=== PATIENT | female | born 2005 | race Two or more races ===

== ENCOUNTER 2025-06-18 09:24 | Emergency (ER) | payer MEDICAID, SELFPAY ==
[2025-06-18 09:42] VITALS: BP 98/65; PULSE 64; RESP 16; TEMP 37.1; O2SAT 98; BMI 22.9
--- NOTE | 2025-06-18 10:12 | XR_ITS ---
EXAMINATION: Ankle, right 3 views. Technique: Ankle AP, oblique, lateral 3 views Date and time of exam: June 18, 2025, 10:32 a.m. INDICATIONS: Patient fell today with injury to the ankle, pain FINDINGS: No fracture or dislocation. No foreign body IMPRESSION: No fracture or dislocation
--- NOTE | 2025-06-18 10:12 | EDNOTE_ITS ---
Lower Extremity Injury RME/HPI General Chief Complaint: Ankle/Foot Injury Stated Complaint: R) ANKLE INJURY Time Seen by Provider: 06/18/25 09:29 Arrival date/time: 06/18/25 09:24 This is a 19-year-old female that comes into the emergency room with complaints of right ankle pain. Patient states that she hurt it while playing basketball. Patient initially thought it was just sprained but today she comes in wondering if there is a fracture to her ankle. Patient comes in with crutches already. Patient already has a Bill bandage over her leg. Patient has some mild swelling to lateral ankle area Related Data Home Medications ?Medication ?Instructions ?Recorded ?Confirmed No Known Home Medications 08/02/1710/14 Allergies Allergy/AdvReac Type Severity Reaction Status Date / Time No Known Allergies Allergy Verified 06/18/25 09:26 Review of Systems Review of Systems Systems Reviewed: All systems reviewed, normal except as documented Past Medical History Social History SMOKING STATUS: Never smoker Travel History EBOLA RISK: No ED Exam Narrative Physical exam: VITAL SIGNS: Reviewed. GENERAL APPEARANCE: Alert and interactive, follows commands, no acute distress HEAD AND FACE: Non-traumatic. ENT: PERRL, conjuctiva pink and clear, eyelid no trauma, Mucous membrane moist. NECK: Supple, nontender, no nuchal rigidity. CHEST: No tenderness, no crepitus, no paradoxical movement, no retractions. LUNGS: breathing even and unlabored HEART: Regular rate, cap refill less than 2 seconds ABDOMEN: Soft NEUROLOGICAL: Gross motor function intact sensory function intact, Appropriate for age. MUSCULOSKELETAL: low back nontender, full range of motion. no midline tenderness EXTREMITIES: No redness no swelling no skin breakdown on bilateral foot and leg. Distal neurovascular status intact bilateral foot SKIN: Color pink, dry, mild swelling to the lateral right ankle area no deformity noted. Mild pain with movement. Good distal pulses Course Quality Measures none Orders Category Date Time Status XR ankle comp RT min 3V Stat Exams 06/18/25 10:12 Completed XR foot comp RT min 3V Stat Exams 06/18/25 10:12 Completed Vital Signs Vital signs: Vital Signs Temperature 98.7 F 06/18/25 09:42 Pulse Rate 64 06/18/25 09:42 Respiratory Rate 16 06/18/25 09:42 Blood Pressure 98/65 06/18/25 09:42 Pulse Oximetry (%) 98 06/18/25 09:42 Oxygen Delivery Method Room Air 06/18/25 09:42 Extremity Injury, Lower MDM Narrative MDM Narrative:: ankle FINDINGS: No fracture or dislocation. No foreign body IMPRESSION: No fracture or dislocation foot: FINDINGS: No acute fracture No dislocation IMPRESSION: No acute fracture Today patient had xray.There was no acute fracture seen. Exam appeared unremarkable. I explained to patient at length that if there was continued pain to this area or worsened to come back to ED or see primary provider for more xrays or further testing such as CT scan or MRI. X rays are not perfect and sometimes serial films needed. Patient verbalized understanding. Patient states they will follow up with primary provider in 1-2 days or come back to ED if symptoms change or worsen. I spoke to patient and mom at length. Patient will need to follow-up with p castillo doctor in 1 to 2 days [place] to the emergency room symptoms change or worsen. I did explain to them that x-rays only show break's but do not show any tears and if continued pain may need a CT or MRI. Family verbalized understanding. Feel comfortable plan of care. I will take patient off work for the next few days I told her to rest, ice and elevate leg. Dragon dictation: Although this document has been carefully reviewed, there may still be some phonetic and other typographical errors. These errors are purely grammatical due to imperfections in the software program and should not be construed in any way to compromise the substance of the patient's medical care during this visit. Patient data External records reviewed:: [facility] previous records Clinical information provided by:: patient Social determinants that could affect healthcare access:: none Patient has the following chronic illnesses:: none How is presenting disease/condition affected by chronic disease/condition?: no chronic disease Evaluation data The following diagnostics were reviewed and interpreted by me:: radiology exam(s) Lab and/or radiology exams considered but not ordered:: none Interpretation Summary: see note Medications / Prescriptions Medications or Prescriptions considered but not ordered:: none Medication administrations:: see mar Consultations Consultation(s) initiated? (list below): No Diagnosis Most likely diagnosis given after review of the tests above:: see note Admission Indicated Admission indicated?: not indicated Admission Request Was there a request for admission?: No Disposition Plan Disposition Plan: Discharge Discharge Attestation Discharge Attestation: The patient and all family members were given an opportunity to ask questions and understood the discharge instructions. Discharge instructions specifically effects, indications for sooner follow up or return to the emergency department, and the expected course of current diagnosis. Patient condition: Stable Discharge Plan Plan Patient Disposition: HOME (Self Care) Patient condition on transfer: Stable Prescriptions/Referrals Prescriptions/Med Rec: No Action No Known Home Medications Referrals: No Primary/Family,Physician [Primary Care Provider] - In 1 week Problem List Clinical Impression: Ankle contusion, Acute ankle pain Patient/Caregiver Discharge Instructions Discharge Activity: activity as tolerated Education Materials: ED Soft Tissue Contusion, ED RICE Additional Instructions: Follow up with primary provider in 1-2 days. Come back to ED if symptoms change or worsen Print Language: Mozambican Stand Alone Forms: Cinthya Award Info., Work/School Release, Patient Portal Info Letter PA/NCA CERTIFIED CONCIERGE Supervising Physician PA/NCA CERTIFIED CONCIERGE Supervising Physician: maryam
--- NOTE | 2025-06-18 10:12 | XR_ITS ---
Examination: Foot, right, 3 views Technique: AP, oblique, lateral views foot, 3 views Date and time of exam: June 18, 2025, 1034 hours INDICATIONS: Patient fell today with injury to the foot, foot pain FINDINGS: No acute fracture No dislocation IMPRESSION: No acute fracture
== END 2025-06-18 12:35 | disposition home or self-care (01) ==
PROVIDERS: Emergency Provider Emergency Medicine
DX: S90.01XA Contusion of right ankle, initial encounter (principal); S99.921A Unspecified injury of right foot, initial encounter; X58.XXXA Exposure to other specified factors, initial encounter; Y93.67 Activity, basketball
CPT/HCPCS: 73610; 73630; 99282